=== PATIENT | male | born 1965 | race Caucasian/White ===

== ENCOUNTER → 2020-02-23 14:16 | Outpatient (BNVA) | payer BC, SELFPAY | PROVIDERS: Family Provider Family Medicine; PCP Family Medicine; Visit Provider Family Medicine | DX: E78.00 Pure hypercholesterolemia, unspecified (principal) | CPT/HCPCS: 80053; 80061; 85025 ==

== ENCOUNTER → 2020-03-14 08:48 | Outpatient (BNVA) | payer BC, SELFPAY | PROVIDERS: Family Provider Family Medicine; PCP Family Medicine; Referring Provider Family Medicine; Visit Provider Family Medicine | DX: R89.9 Unspecified abnormal finding in specimens from other organs, systems and tissues (principal); E78.00 Pure hypercholesterolemia, unspecified; I10 Essential (primary) hypertension | CPT/HCPCS: 36416; 82962 ==

== ENCOUNTER → 2021-12-10 12:27 | Outpatient (BNVA) | payer MEDICARE, MEDICAID, SELFPAY | PROVIDERS: Family Provider Family Medicine; PCP Family Medicine; Visit Provider Family Medicine | DX: R79.89 Other specified abnormal findings of blood chemistry (principal) | CPT/HCPCS: 84403 ==

== ENCOUNTER → 2022-03-18 13:52 | Outpatient (BNVA) | payer MEDICARE, MEDICAID, SELFPAY | PROVIDERS: Family Provider Family Medicine; PCP Family Medicine; Visit Provider Family Medicine | DX: E78.00 Pure hypercholesterolemia, unspecified (principal); R79.89 Other specified abnormal findings of blood chemistry | CPT/HCPCS: 80053; 80061; 84403; 85025 ==

== ENCOUNTER → 2022-09-17 12:37 | Outpatient (BNVA) | payer MEDICARE, MEDICAID, SELFPAY | PROVIDERS: Family Provider Family Medicine; PCP Family Medicine; Visit Provider Clinical Nurse Specialist Adult Health | DX: F41.1 Generalized anxiety disorder (principal); J31.0 Chronic rhinitis; R68.89 Other general symptoms and signs; F33.1 Major depressive disorder, recurrent, moderate; J01.01 Acute recurrent maxillary sinusitis | CPT/HCPCS: 87400 ==

== ENCOUNTER → 2022-09-22 12:22 | Outpatient (BNVA) | payer MEDICARE, MEDICAID, SELFPAY | PROVIDERS: Family Provider Family Medicine; PCP Family Medicine; Visit Provider Family Medicine | DX: F32.9 Major depressive disorder, single episode, unspecified (principal); R63.4 Abnormal weight loss; F33.1 Major depressive disorder, recurrent, moderate; J01.01 Acute recurrent maxillary sinusitis; R79.89 Other specified abnormal findings of blood chemistry; M54.41 Lumbago with sciatica, right side; M54.42 Lumbago with sciatica, left side; G89.29 Other chronic pain | CPT/HCPCS: 80053; 84403; 84439; 84443; 85025 ==

== ENCOUNTER 2022-12-10 18:39 | Emergency (ER) | payer MEDICARE, MEDICAID, SELFPAY ==
[2022-12-10] VITALS (8 sets, daily range): BP systolic 84–111; BP diastolic 61–83; PULSE 88–99; RESP 12–18; TEMP 35.7; O2SAT 93–97; BMI 25.7
--- NOTE | 2022-12-10 18:48 | XRR_ITS ---
PROCEDURE INFORMATION: Exam: XR Chest Exam date and time: 12/10/2022 6:57 PM Age: 57 years old Clinical indication: Pain; Chest pressure; Additional info: AMS, dizzy, weakness, back pain, nausea TECHNIQUE: Imaging protocol: Radiologic exam of the chest. Views: 1 view. COMPARISON: No relevant prior studies available. FINDINGS: Lungs: Mild interstitial prominence in the lung bases is most likely chronic change. Probable emphysema. No consolidation. Pleural spaces: Unremarkable. No pleural effusion. No pneumothorax. Heart/Mediastinum: Unremarkable. No cardiomegaly. Bones/joints: Unremarkable. XR/XR chest 1V portable [id number] IMPRESSION: No acute findings.
--- NOTE | 2022-12-10 19:13 | ECG_ITS ---
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 Measurements Intervals [place] Rate: 88 P: 69 LA: 172 QRS: 49 QRSD: 105 T: 77 QT: 403 QTc: 488 Interpretive Statements SINUS RHYTHM POSSIBLE LATERAL MYOCARDIAL INFARCTION , OF INDETERMINATE AGE [30 ms Q WAVE IN I/aVL/V5/V6] POSSIBLE INFERIOR MYOCARDIAL INFARCTION , PROBABLY OLD [30 ms Q WAVE IN II/aVF] No previous ECG available for comparison Electronically Signed On 12-10-2022 22:50:42 STUDIO POTTER by David Vargas M.D. [id number]
--- NOTE | 2022-12-10 19:17 | W.ED.WEAKNES ---
HPI - Weakness General: Chief complaint: Weakness Stated complaint: WEAKNESS Time Seen by Provider: 12/10/22 18:48 Source: patient and EMS Mode of arrival: EMS Limitations: no limitations History of Present Illness: 57-year-old male states that for quite some time he has been having he states that he has spells where he gets diaphoretic lightheaded and feels like he is in a pass out he states has been happening often and he states his primary care doctor to actually write him nitro he is never had any chest pain with these events he states he had another event tonight he took a nitro and his symptoms of gotten worse his blood pressure with EMS was in the 80s originally he states he felt nauseous like he is got a pass out denies any chest pain he did receive fluids in route his blood pressure is now in the 100 he states he feels improved and his symptoms have resolved. No slurred speech or focal weakness Associated symptoms: Denies chest pain, chills, dysuria, easy bruising, fever(s), nausea or vomiting Review of Systems Const: Denies: fever(s), chills, body aches or change in appetite Eyes: Denies: blurry vision or eye discomfort ENMT: Denies: throat pain or dental pain Card: Denies: chest pain Resp: Denies: dyspnea GI: Denies: abdominal pain, nausea, vomiting or diarrhea : Denies: dysuria Musc: Denies: neck pain or back pain Skin/Breast: Denies: rash Neuro: Reports: dizziness Psych: Denies: depression Archie/Lymph: Denies: easy bruising All/Imm: Denies: urticaria PFSH ED PFSH: Medical History Chronic bilateral low back pain with sciatica Chronic rhinitis COPD (chronic obstructive pulmonary disease) Generalized anxiety disorder GERD (gastroesophageal reflux disease) H/O strain of back Hypercholesteremia Hypertension Low testosterone Vitamin B1 deficiency neuropathy Surgical History H/O colonoscopy History of discectomy L 5S1 Social History Smoking and tobacco status: current every day smoker Alcohol intake: never Physical Exam Const: COMMON NORMALS: no acute distress, patient oriented x3 and healthy appearing HENMT: COMMON NORMALS: normocephalic and atraumatic HEAD & SCALP: normocephalic and atraumatic Eye: COMMON NORMALS: Equal, round and reactive pupils present and EOMs intact bilaterally PUPIL: Yes Equal, round and reactive pupils present Neck/C-Spine: COMMON NORMALS: full ROM and supple Chest: COMMONS NORMALS: normal inspection of the chest and normal palpation of entire chest wall Resp: COMMON NORMALS: normal respiratory effort, No retractions, No use of accessory muscles and clear to auscultation bilaterally AUSCULTATION: clear to auscultation bilaterally Cardio: COMMON NORMALS: regular rate, regular rhythm and No murmurs present (Cardio) RATE: regular rate RHYTHM: regular rhythm GI: COMMON NORMALS: Normal to inspection, nondistended, normoactive bowel sounds present, Soft to palpation, non-tender and no masses PALPATION: Yes Soft to palpation Extremity: COMMON NORMALS: normal to inspection and full ROM Neuro: COMMON NORMALS: patient oriented x3, moves all extremities and no focal motor deficits Psych: COMMON NORMALS: mental status grossly normal, Normal thought process present and cooperative THOUGHT PROCESS: Normal thought process present Skin: COMMON NORMALS: no rashes or lesions noted and no wounds GENERAL SKIN EXAM: no rashes or lesions noted Course Vital Signs: Vital signs: Vital Signs Temperature 96.2 F L 12/10/22 19:12 Pulse Rate 92 12/10/22 22:30 Respiratory Rate 18 12/10/22 22:30 Blood Pressure 111/83 12/10/22 22:30 Pulse Oximetry 97 12/10/22 22:30 Oxygen Delivery Me thod 12/10/22 19:12 MDM - Weakness Medical Decision Making Patient presents here with symptoms of a near syncopal event having these episodes that he also took a nitro that likely made his blood pressure worse he feels much improved here after IV fluids he states he does not drink much fluids he does have some dehydration and leukocytosis that did improve with IV fluids I did offer him admission for the leukocytosis he has no signs of infection he states he feels much improved and he wants to go home I informed he needs to follow-up his PCP in 5 to 7 days to have his white count rechecked and return if worsening he understands agrees to plan I informed him do not take nitro anymore. Lab Data 12/10/22 22:17 12/10/22 19:25 Radiology Impressions Chest X-Ray 12/10/22 18:48 IMPRESSION: No acute findings. Chest/Abdomen/Pelvis CT 12/10/22 19:54 IMPRESSION: 1. No evidence for pulmonary embolus. 2. Emphysema. No acute pulmonary finding. IMPRESSION: 1. Small gas bubbles in the left liver lobe most likely represents pneumobilia. This suggests prior sphincterotomy. Clinical correlation recommended. 2. Multiple bilateral adrenal nodules are most likely benign adenomas. Nonemergent follow-up adrenal CT is recommended. Laboratory Results WBC 21.4 10^3/uL (4.0-10.0) H 12/10/22 22:17 RBC 4.81 10^6/uL (4.1-5.3) 12/10/22 22:17 Hgb 15.1 g/dL (11.7-16.6) 12/10/22 22:17 Hct 45.1 % (42.0-52.0) 12/10/22 22:17 MCV 93.8 fl (80-94) 12/10/22 22:17 MCH 31.4 pg (28.0-34.0) 12/10/22 22: MCHC 33.5 g/dL (30.0-36.0) 12/10/22 22:17 RDW 12.8 % (12.1-15.1) 12/10/22 22:17 Plt Count 269 10^3/cmm (130-400) 12/10/22 22:17 MPV 9.9 fL (7.4-10.4) 12/10/22 22:17 Neut % (Auto) 88.9 % 12/10/22 22:17 Lymph % (Auto) 5.1 % 12/10/22 22:17 [place] % (Auto) 4.3 % 12/10/22 22:17 Eos % (Auto) 0.5 % 12/10/22 22: Baso % (Auto) 0.5 % 12/10/22 22:17 Neut # (Auto) 19.01 10^3/uL (1.8-7.7) H 12/10/22 22:17 Lymph # (Auto) 1.1 10^3/uL (0.8-4.8) 12/10/22 22:17 [place] # (Auto) 0.9 10^3/uL (0.2-0.9) 12/10/22 22:17 Eos # (Auto) 0.1 10^3/uL (0.0-0.8) 12/10/22 22:17 Baso # (Auto) 0.1 10^3/uL (0.0-0.1) 12/10/22 22:17 Nucleated RBC % (auto) 0 % 12/10/22 22: Nucleated RBCs # 0.0 /100WBC 12/10/22 22:17 PT 12.30 SECONDS (12.1-14.9) 12/10/22 19:25 INR 0.89 (0.8-1.2) 12/10/22 19:25 Sodium 142 mmol/L (136-145) 12/10/22 19:25 Potassium 4.0 mmol/L (3.5-5.1) 12/10/22 19:25 Chloride 100 mmol/L (98-107) 12/10/22 19:25 Carbon Dioxide 24 mmol/L (22-29) 12/10/22 19:25 Anion Gap 22.0 (5-19) H 12/10/22 19:25 BUN 24 mg/dL (6-20) H 12/10/22 19:25 Creatinine 1.5 mg/dL (0.7-1.2) H 12/10/22 19:25 GFR Calculation 48.1 mL/min (90-130) L 12/10/22 19:25 Glucose 98 mg/dL (65-115) 12/10/22 19:25 Calculated Osmolality 298 mOsm/kg (285-295) H 12/10/22 19:25 Lactate 1.9 mmol/L (0.5-2.2) 12/10/22 19:25 Calcium 9.9 mg/dL (8.5-10.5) 12/10/22 19:25 Total Bilirubin 0.2 mg/dL (0.15-1.2) 12/10/22 19:25 AST 14 U/L (0-40) 12/10/22 19:25 ALT 15 U/L (0-41) 12/10/22 19:25 Alkaline Phosphatase 146 U/L (40-130) H 12/10/22 19:25 Troponin T Baseline 11 ng/L (0-15) 12/10/22 19:25 Troponin T 120 Minute 9.77 ng/L (0-15) 12/10/22 21:48 Delta Troponin T -1.23 ABS# (0-10) L 12/10/22 21:48 Total Protein 7.9 g/dL (6.6-8.7) 12/10/22 19:25 Albumin 4.7 g/dL (3.5-5.2) 12/10/22 19:25 Globulin 3.2 g/dL (1.3-4.6) 12/10/22 19:25 Urine Color Yellow (Yellow) 12/10/22 22:31 Urine Appearance Clear (CLEAR) 12/10/22 22: Urine pH 5 (5-7) 12/10/22 22: Ur Specific Boyce 1.010 (1.005-1.030) 12/10/22 22:31 Urine Protein Neg (Negative) 12/10/22 22: Urine Glucose (UA) Norm (Normal) 12/10/22 22:31 Urine Ketones Negative (Negative) 12/10/22 22:31 Urine Blood Neg (Negative) 12/10/22 22:31 Urine Nitrate Negative (Negative) 12/10/22 22: Urine Bilirubin Neg (Negative) 12/10/22 22: Urine Urobilinogen Norm mg/dL (Negative) 12/10/22 22:31 Ur Leukocyte Esterase Negative (Negative) 12/10/22 22: Ethyl Alcohol < 10 mg/dL (0-10) 12/10/22 19:25 EKG Data EKG 1: I personally reviewed and interpreted this EKG as follows: EKG interpretation date: 12/10/22 EKG interpretation time: 19:13 Interpretation: nsr hr [address] or t wave abnormalities qrs 105 qtc 448 Discharge Plan Discharge Patient Disposition: Home Clinical Impression: Leukocytosis, Near syncope Condition: Stable Prescriptions: No Action mupirocin 2 % ointment 1 applic TOPICAL BID Qty: 22 0RF aspirin [Adult Low Dose Aspirin] 81 mg tablet,delayed release (DR/EC) 81 mg PO ONCE albuterol sulfate [Ventolin HFA] 90 mcg/actuation HFA aerosol inhaler 2 puff INHALATION Q6H PRN azelastine 137 mcg (0.1 %) aerosol,spray 1 spray INTRANASAL BID nitroglycerin 0.4 mg tablet, sublingual 0.4 mg sublingual Q5M PRN (Reason: chest pain) Qty: 25 1RF Rx Instructions: do not exceed 3 doses per episode albuterol sulfate [ProAir HFA] 90 mcg/actuation HFA aerosol inhaler 2 puff inhalation QID PRN (Reason: shortness of breath or wheezing) Qty: 8.5 6RF budesonide-formoterol [Symbicort] 160-4.5 mcg/actuation HFA aerosol inhaler 2 puff inhalation Q12H Qty: 10.2 6RF hydrocodone-acetaminophen 7.5-325 mg tablet 1 tab PO DAILY PRN (Reason: pain) 30 Days Qty: 30 0RF Zyrtec 10 mg capsule 10 mg PO ONCE Qty: 60 1RF testosterone cypionate [Depo-Testosterone] 200 mg/mL oil 100 mg IM Q14D Qty: 1 5RF Rx Instructions: after first 2 doses: increase to 1ml every 4 weeks meloxicam 15 mg tablet See Rx Instructions .ROUTE .COMPLEX Qty: 90 1RF Dose Instruction: TAKE 1 TABLET BY MOUTH EVERY DAY Rx Instructions: TAKE 1 TABLET BY MOUTH EVERY DAY tamsulosin 0.4 mg capsule See Rx Instructions .ROUTE .COMPLEX Qty: 90 1RF Dose Instruction: TAKE ONE CAPSULE BY MOUTH EVERY DAY Rx Instructions: TAKE ONE CAPSULE BY MOUTH EVERY DAY montelukast 10 mg tablet See Rx Instructions .ROUTE .COMPLEX Qty: 90 1RF Dose Instruction: TAKE 1 TABLET BY MOUTH EVERY DAY Rx Instructions: TAKE 1 TABLET BY MOUTH EVERY DAY Folbee 2.5-25-1 mg tablet 1 tab PO ONCE 90 Days Qty: 90 3RF omeprazole 20 mg capsule,delayed release(DR/EC) 40 mg .ROUTE DAILY 60 Days Qty: 120 3RF Rx Instructions: 40 mg daily; rosuvastatin 10 mg tablet 10 mg PO DAILY Qty: 90 1RF fluoxetine 20 mg capsule 20 mg PO DAILY Qty: 30 3RF pseudoephedrine HCl 60 mg tablet 60 mg PO Q12H PRN (Reason: nasal congestion) 30 Days Qty: 60 3RF lisinopril-hydrochlorothiazide 20-12.5 mg tablet 1 tab PO BID Qty: 180 2RF buspirone 30 mg tablet See Rx Instructions .ROUTE .COMPLEX Qty: 180 2RF Dose Instruction: TAKE 1 TABLET BY MOUTH TWICE DAILY FOR ANXIETY Rx Instructions: TAKE 1 TABLET BY MOUTH TWICE DAILY FOR ANXIETY Discharge Orders: Discharge ED (Routine); Ordered 12/10/22 Ordered By: Venancio Weeks Referrals: Luigi Olivares MD [Primary Care Provider] - Discharge Diet: Advance as tolerated Discharge Activity: Resume usual activity Patient Instructions: Near Syncope (ED) Coding Level of Care Code ED Airflight Attendants Supervisor for Maribell Helms
[2022-12-10 19:51] LABS: Basophils # 0.2 10^3/uL (0.0-0.1); Basophils % 0.5 %; Eosinophils # 0.2 10^3/uL (0.0-0.8); Eosinophils % 0.5 %; Hematocrit 50.1 % (42.0-52.0); Hemoglobin 16.9 g/dL (11.7-16.6); Lymphocytes # 2.1 10^3/uL (0.8-4.8); Lymphocytes % 7.5 %; Mean Corpuscular HGB Conc 33.7 g/dL (30.0-36.0); Mean Corpuscular Hemoglobin 31.4 pg (28.0-34.0); Mean Corpuscular Volume 93.1 fl (80-94); Mean Platelet Volume 9.9 fL (7.4-10.4); Monocytes # 1.4 10^3/uL (0.2-0.9); Monocytes % 5.1 %; Neutrophils # 23.72 10^3/uL (1.8-7.7); Neutrophils % 85.5 %; Nucleated Red Blood Cells % 0 %; Platelet Count 343 10^3/cmm (130-400); Red Blood Count 5.38 10^6/uL (4.1-5.3); Red Cell Distribution Width 12.8 % (12.1-15.1); White Blood Count 27.8 10^3/uL (4.0-10.0)
--- NOTE | 2022-12-10 19:54 | CTR_ITS ---
PROCEDURE INFORMATION: Exam: CTA Chest With Contrast Exam date and time: 12/10/2022 8:56 PM Age: 57 years old Clinical indication: Other: Chest pain, with nausea; Chest wall pain; Additional info: Pain in chest, dizziness and syncope type episode TECHNIQUE: Imaging protocol: Computed tomographic angiography of the chest with contrast. 3D rendering (Not supervised by radiologist): MIP and/or 3D reconstructed images were created by the technologist. Radiation optimization: All CT scans at this facility use at least one of these dose optimization techniques: automated exposure control; mA and/or kV adjustment per patient size (includes targeted exams where dose is matched to clinical indication); or iterative reconstruction. Contrast material: OMNIPAQUE 350; Contrast volume: 95 ml; Contrast route: INTRAVENOUS (IV); REPORTING DATA: Count of CT and Cardiac NM exams in prior 12 months: This patient has received 0 known CTs and 0 known cardiac nuclear medicine studies in the 12 months prior to the current study. COMPARISON: CR (CHEST, ) 12/10/2022 6:57 PM RADIATION DOSE METRICS: Total DLP (mGy-cm): 980.66 FINDINGS: Pulmonary arteries: Normal. No pulmonary emboli. Aorta: The ascending thoracic aorta is upper normal measuring 3.9 cm. No dissection. Lungs: Emphysema. Mild atelectasis in the lower lobes and lingula. The lungs are otherwise clear. No consolidation. Pleural spaces: Unremarkable. No pneumothorax. No pleural effusion. Heart: The heart size is normal. Coronary arteries: Coronary artery calcifications. Lymph nodes: Unremarkable. No enlarged lymph nodes. Bones/joints: Mild degenerative changes of the thoracic spine. No acute fracture. Soft tissues: Unremarkable. COMMENTS: In the absence of a history or active diagnosis of lung cancer, it is recommended that this patient with emphysema be evaluated for enrollment in a low dose CT lung cancer screening program. PROCEDURE INFORMATION: Exam: CT Abdomen And Pelvis With Contrast Exam date and time: 12/10/2022 8:56 PM Age: 57 years old Clinical indication: Other: Chest pain, with nausea; Chest wall pain; Additional info: Pain in chest, dizziness and syncope type episode TECHNIQUE: Imaging protocol: Computed tomography of the abdomen and pelvis with contrast. Radiation optimization: All CT scans at this facility use at least one of these dose optimization techniques: automated exposure control; mA and/or kV adjustment per patient size (includes targeted exams where dose is matched to clinical indication); or iterative reconstruction. Contrast material: OMNIPAQUE 350; Contrast volume: 95 ml; Contrast route: INTRAVENOUS (IV); REPORTING DATA: Count of CT and Cardiac NM exams in prior 12 months: This patient has received 0 known CTs and 0 known cardiac nuclear medicine studies in the 12 months prior to the current study. COMPARISON: CR (CHEST, ) 12/10/2022 6:57 PM RADIATION DOSE METRICS: Total DLP (mGy-cm): 980.66 FINDINGS: Liver: Normal. No nodule. Gallbladder and bile ducts: The gallbladder is partially contracted. The bile ducts are normal. Multiple small gas bubbles in the left liver lobe appear to be adjacent to the portal veins and are most likely within the bile ducts. Pancreas: Normal. No ductal dilation. Spleen: Normal. No splenomegaly. Adrenal glands: Multiple right adrenal nodules measuring up to 2.1 cm, 41 Hounsfield units. Multiple left adrenal nodules, the largest 2.5 cm, 31 Hounsfield units. Kidneys and ureters: Normal. No hydronephrosis. Stomach and bowel: Fluid distended stomach. No wall thickening. Diverticulosis of the colon. No diverticulitis. The small bowel is unremarkable. No wall thickening, obstruction, or pneumatosis visualized. Appendix: The appendix is visualized and is normal. Intraperitoneal space: Unremarkable. No free air. No significant fluid collection. Vasculature: Arterial calcifications. No aneurysm. Lymph nodes: Unremarkable. No enlarged lymph nodes. Urinary bladder: Unremarkable as visualized. Reproductive: Mildly enlarged prostate. Bones/joints: Unremarkable. No acute fracture. Soft tissues: Unremarkable. CT/CT angio chest w abd pel w con IMPRESSION: 1. No evidence for pulmonary embolus. 2. Emphysema. No acute pulmonary finding. IMPRESSION: 1. Small gas bubbles in the left liver lobe most likely represents pneumobilia. This suggests prior sphincterotomy. Clinical correlation recommended. 2. Multiple bilateral adrenal nodules are most likely benign adenomas. Nonemergent follow-up adrenal CT is recommended.
[2022-12-10 19:59] LABS: INR 0.89 (0.8-1.2)
[2022-12-10 20:08] LABS: Lactate (Lactic Acid level) 1.9 mmol/L (0.5-2.2)
--- NOTE | 2022-12-10 20:49 | ECG_ITS ---
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 Measurements Intervals [place] Rate: 87 P: 80 [place]: 177 QRS: 52 QRSD: 101 T: 75 QT: 401 QTc: 484 Interpretive Statements SINUS RHYTHM POSSIBLE RIGHT VENTRICULAR CONDUCTION DELAY [RSR (QR) IN V1/V2] Compared to ECG 12/10/2022 19:13:19 Myocardial infarct finding no longer present Electronically Signed On 12-10-2022 22:51:17 RIVER TRANSPORTATION WORKER by David Vargas M.D. [email or web address] care [id number]
[2022-12-10] MEDS: iohexol 350 mg/mL 500 mL Btl (per mL) IV (21:00)
[2022-12-10 21:40] LABS: Troponin(5th) Baseline 11 ng/L (0-15)
[2022-12-10 21:46] LABS: Alanine Aminotransferase 15 U/L (0-41); Albumin Level 4.7 g/dL (3.5-5.2); Alkaline Phosphatase 146 U/L (40-130); Aspartate Amino Transferase 14 U/L (0-40); Blood Urea Nitrogen 24 mg/dL (6-20); Calcium 9.9 mg/dL (8.5-10.5); Carbon Dioxide 24 mmol/L (22-29); Chloride 100 mmol/L (98-107); Globulin 3.2 g/dL (1.3-4.6); Glomerular Filtration Rate 48.1 mL/min (90-130); Glucose 98 mg/dL (65-115); Osmolality Calculated 298 mOsm/kg (285-295); Sodium 142 mmol/L (136-145); Total Bilirubin 0.2 mg/dL (0.15-1.2); Total Protein 7.9 g/dL (6.6-8.7)
[2022-12-10 21:49] LABS: Alcohol Level < 10 mg/dL (0-10)
[2022-12-10 22:21] LABS: Basophils # 0.1 10^3/uL (0.0-0.1); Basophils % 0.5 %; Eosinophils # 0.1 10^3/uL (0.0-0.8); Eosinophils % 0.5 %; Hematocrit 45.1 % (42.0-52.0); Hemoglobin 15.1 g/dL (11.7-16.6); Lymphocytes # 1.1 10^3/uL (0.8-4.8); Lymphocytes % 5.1 %; Mean Corpuscular HGB Conc 33.5 g/dL (30.0-36.0); Mean Corpuscular Hemoglobin 31.4 pg (28.0-34.0); Mean Corpuscular Volume 93.8 fl (80-94); Mean Platelet Volume 9.9 fL (7.4-10.4); Monocytes # 0.9 10^3/uL (0.2-0.9); Monocytes % 4.3 %; Neutrophils # 19.01 10^3/uL (1.8-7.7); Neutrophils % 88.9 %; Nucleated Red Blood Cells % 0 %; Platelet Count 269 10^3/cmm (130-400); Red Blood Count 4.81 10^6/uL (4.1-5.3); Red Cell Distribution Width 12.8 % (12.1-15.1); White Blood Count 21.4 10^3/uL (4.0-10.0)
[2022-12-10 22:23] LABS: Troponin 5 2HR 9.77 ng/L (0-15)
[2022-12-10 22:37] LABS: Add Urine Microscopic? NO; Charge for UA Resulting for Rev
[2022-12-10 22:38] LABS: Urine Appearance Clear (CLEAR); Urine Color Yellow (Yellow); pH Urine 5 (5-7)
[2022-12-10 22:39] LABS: Bilirubin Urine Neg (Negative); Blood Urine Neg (Negative); Glucose Urine UA Norm (Normal); Ketones Urine Negative (Negative); Leukocyte Esterase Urine Negative (Negative); Nitrate Urine Negative (Negative); Protein Urine Neg (Negative); Urobilinogen Urine Norm (Negative)
[2022-12-10 22:39] LABS: Troponin 5 2HR Delta -1.23 ABS# (0-10)
== END 2022-12-10 22:54 | disposition home or self-care (01) ==
PROVIDERS: Emergency Provider Emergency Medicine; PCP Family Medicine
DX: R55 Syncope and collapse (principal); D72.829 Elevated white blood cell count, unspecified; Z79.82 Long term (current) use of aspirin; F17.210 Nicotine dependence, cigarettes, uncomplicated; J44.9 Chronic obstructive pulmonary disease, unspecified; I10 Essential (primary) hypertension
CPT/HCPCS: 36415; 71045; 71275; 74177; 80053; 80307; 81003; 83605; 84484; 85025; 85610; 93005; 99285; Q9967

== ENCOUNTER → 2022-12-17 13:07 | Outpatient (BNVA) | payer MEDICARE, MEDICAID, SELFPAY | PROVIDERS: PCP Family Medicine; Visit Provider Family Medicine | DX: D72.829 Elevated white blood cell count, unspecified (principal) | CPT/HCPCS: 80053; 85025 ==

== ENCOUNTER 2022-12-19 18:05 | Outpatient (CLI) | payer MEDICARE, MEDICAID, SELFPAY ==
--- NOTE | 2022-12-19 18:15 | XRR_ITS ---
PROCEDURE INFORMATION: Exam: XR Right Hand Exam date and time: 12/19/2022 6:15 PM Age: 57 years old Clinical indication: Pain; Right; Patient HX: Phlebitis after blood drawn from hand; Additional info: Right hand pain TECHNIQUE: Imaging protocol: Radiologic exam of the right hand. Views: 3 or more views. COMPARISON: No relevant prior studies available. FINDINGS: Bones/joints: Moderate to severe arthritic changes seen involving the 1st metacarpal carpal joint as well as the scaphoid trapezium and scaphoid trapezoid joints. Mild arthritic changes seen involving the interphalangeal joints. There is no fracture, dislocation or subluxation. Soft tissues: Normal. XR/XR hand RT min 3V* [id number] IMPRESSION: Arthritis.
== END 2022-12-19 18:06 | disposition home or self-care (01) ==
PROVIDERS: PCP Family Medicine; Visit Provider Emergency Medicine
DX: M19.041 Primary osteoarthritis, right hand (principal)
CPT/HCPCS: 73130

== ENCOUNTER → 2023-04-13 07:30 | Outpatient (BNVA) | payer MEDICARE, MEDICAID, SELFPAY | PROVIDERS: PCP Family Medicine; Visit Provider Otolaryngology | DX: J31.0 Chronic rhinitis (principal); J32.9 Chronic sinusitis, unspecified; J34.2 Deviated nasal septum; J34.3 Hypertrophy of nasal turbinates; T48.5X5A Adverse effect of other anti-common-cold drugs, initial encounter; X58.XXXA Exposure to other specified factors, initial encounter | CPT/HCPCS: 99203 ==

== ENCOUNTER 2023-05-19 10:45 | Outpatient (CLI) | payer MEDICARE, MEDICAID, SELFPAY ==
--- NOTE | 2023-05-19 11:00 | CT_ITS ---
WS: [id number] CT SINUSES TECHNIQUE: Noncontrast CT of the paranasal sinuses with coronal and sagittal reformatted images. CLINICAL INFORMATION: sinus concerns COMPARISON: April 08, 2017 DLP: 373.[address] scans at [facility] use at least one of these dose optimization techniques: automated e xposure control; mA and/or kV adjustment per patient size (includes targeted exams where dose is matc hed to clinical indication); or iterative reconstruction. FINDINGS: Mild RIGHT to LEFT nasal deviation measuring 4 mm. Bilateral vincent bullosa. Narrowing of the ostiome atal units bilaterally with mucosal thickening. Hypoplastic frontal sinuses. Secretions with air-flui d levels in the maxillary sinuses. Frothy secretions in the maxillary sinuses. Polypoid mucosal thick ening RIGHT maxillary sinus measuring 10 mm. Sphenoid sinuses are well aerated. Cavernous carotid francheska cification. Mastoid air cells are well aerated. Normal posterior nasopharynx. Normal parapharyngeal fat. 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 Chronic lacunar infarcts LEFT thalamus. Unchanged low-attenuation lesion encephalomal acia RIGHT posterior limb internal capsule/lateral thalamus. IMPRESSION: 1. Mild RIGHT to LEFT deviation measuring 4 mm. 2. Sinusitis with frothy secretions in the maxillary sinuses progressed compared to previous. 3. Mucosal thickening with narrowing of the ostiomeatal units bilaterally. Small RIGHT Corona cell c ontributes to narrowing. 4. 10 mm polypoid mucosal thickening RIGHT maxillary sinus. 5. Sphenoid sinus and sphenoid ostia are patent. 6. Mastoid air cells well aerated. 7. Hypoplastic frontal sinuses.
== END 2023-05-19 10:46 | disposition home or self-care (01) ==
LOC: RAD 10:48
PROVIDERS: PCP Family Medicine; Visit Provider Otolaryngology
DX: J31.0 Chronic rhinitis (principal); J34.2 Deviated nasal septum; J32.9 Chronic sinusitis, unspecified; J33.1 Polypoid sinus degeneration
CPT/HCPCS: 70486

== ENCOUNTER → 2023-05-26 15:33 | Outpatient (BNVA) | payer MEDICARE, MEDICAID, SELFPAY | PROVIDERS: PCP Family Medicine; Visit Provider Otolaryngology | DX: J32.9 Chronic sinusitis, unspecified (principal); J34.2 Deviated nasal septum; J34.3 Hypertrophy of nasal turbinates; J34.89 Other specified disorders of nose and nasal sinuses; J31.0 Chronic rhinitis; T48.5X5A Adverse effect of other anti-common-cold drugs, initial encounter; X58.XXXA Exposure to other specified factors, initial encounter | CPT/HCPCS: 99213 ==

== ENCOUNTER → 2023-08-03 11:25 | Outpatient (BNVA) | payer MEDICARE, MEDICAID, SELFPAY | PROVIDERS: PCP Family Medicine; Visit Provider Otolaryngology | DX: J32.9 Chronic sinusitis, unspecified (principal); J31.0 Chronic rhinitis; T48.5X5A Adverse effect of other anti-common-cold drugs, initial encounter; J34.2 Deviated nasal septum; J34.3 Hypertrophy of nasal turbinates; J34.89 Other specified disorders of nose and nasal sinuses; F17.210 Nicotine dependence, cigarettes, uncomplicated; X58.XXXA Exposure to other specified factors, initial encounter | CPT/HCPCS: 99213; 99214 ==

== ENCOUNTER → 2024-10-17 12:24 | Outpatient (BNVA) | payer MEDICARE, MEDICAID, SELFPAY | PROVIDERS: PCP Family Medicine; Visit Provider Family Medicine | DX: E53.8 Deficiency of other specified B group vitamins (principal); E55.9 Vitamin D deficiency, unspecified; E78.00 Pure hypercholesterolemia, unspecified; I10 Essential (primary) hypertension; K21.9 Gastro-esophageal reflux disease without esophagitis; R79.89 Other specified abnormal findings of blood chemistry; E51.11 Dry beriberi | CPT/HCPCS: 80053; 80061; 82306; 82607; 84403; 85025 ==

== ENCOUNTER 2025-02-01 10:48 | Emergency (ER) | payer MEDICARE, SELFPAY ==
[2025-02-01] VITALS (8 sets, daily range): BP systolic 146–181; BP diastolic 93–106; PULSE 64–98; RESP 16–18; TEMP 36.3; O2SAT 96–98; BMI 27.2
--- NOTE | 2025-02-01 10:58 | ECG_ITS ---
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 Measurements Intervals [place] Rate: 72 P: 68 VT: 164 QRS: 29 QRSD: 96 T: 53 QT: 425 QTc: 468 Interpretive Statements SINUS RHYTHM INTERPRETATION BASED ON A DEFAULT AGE OF 40 YEARS Compared to ECG 12/10/2022 21:31:51 No significant changes Electronically Signed On 02-01-2025 21:25:16 CDT by Ana Cedeno M.D. [email or web address] [id number]
--- NOTE | 2025-02-01 11:29 | XR_ITS ---
WS: [id number] Portable AP upright chest, 02/01/2025 Clinical Data: dyspnea/cough Comparison: Portable chest, 12/10/2022 Findings: No nodules, masses or effusions are seen. The heart is normal. The pulmonary vascularity is not increased. No pneumonia or pneumothorax is seen. Monitor leads are on the chest wall. XR/XR chest 1V portable [id number] Impression: Negative chest.
--- NOTE | 2025-02-01 11:29 | W.ED.GENADLT ---
HPI - General Adult General: Chief complaint: General Medical Stated complaint: dizzy, n/v, high bp, chest pressure Time Seen by Provider: 02/01/25 10:55 History of Present Illness: 59-year-old male presents to the emergency room with complaint cough congestion sinus drainage. Patient states he will intermittently get episodes where he feels lightheaded and dizzy he relates his blood pressure usually elevated during this time left chest pressure as well is also accompanied by headache. He had all of the symptoms prior to arrival today the last anywhere from 15 to 30 minutes when he gets these episodes. No recent medication changes. He has no known history of coronary artery disease or arrhythmias. He is a smoker. Associated symptoms: Reports chest pain; Deny dyspnea or rash Related Data Home Medications ?Medication ?Instructions ?Recorded ?Confirmed aspirin 81 mg tablet,delayed 81 mg PO ONCE 10/21/19 02/01/25 release (Adult Low Dose Aspirin) buspirone 30 mg tablet 30 mg PO BID 02/01/25 02/01/25 folic acid-vit B6-vit B12 2.5 1 tab PO DAILY 02/01/25 02/01/25 mg-25 mg-1 mg tablet (Folbee) omeprazole 20 mg capsule,delayed 20 mg PO DAILY 02/01/25 02/01/25 release tamsulosin 0.4 mg capsule 0.4 mg PO DAILY 02/01/25 02/01/25 Previous Rx's ?Medication ?Instructions ?Recorded fluoxetine 20 mg capsule 20 mg PO DAILY #90 caps 10/17/24 lisinopril 20 1 tab PO DAILY #90 tabs 10/17/24 mg-hydrochlorothiazide 12.5 mg tablet meloxicam 15 mg tablet 15 mg PO DAILY #90 tabs 10/17/24 montelukast 10 mg tablet 10 mg PO DAILY #90 tabs 10/17/24 sildenafil 100 mg tablet (Viagra) 100 mg PO DAILY PRN sexual 10/17/24 activity #7 tabs clopidogrel 75 mg tablet 75 mg PO DAILY #30 tabs 02/01/25 metoprolol succinate 25 mg 25 mg PO DAILY #30 tabs 02/01/25 tablet,extended release 24 hr (Toprol XL) rosuvastatin 40 mg tablet 40 mg PO DAILY #30 tabs 02/01/25 Allergies Allergy/AdvReac Type Severity Reaction Status Date / Time acetaminophen (From Percocet) Allergy chest Verified 02/01/25 11:02 pains, dizziness oxycodone (From Percocet) Allergy chest Verified 02/01/25 11:02 pains, dizziness Penicillins Allergy hives Verified 02/01/25 11:02 Review of Systems Const: Denies: fever(s) or chills Card: Reports: chest pain Resp: Denies: dyspnea GI: Denies: abdominal pain : Denies: dysuria, urinary frequency or urinary urgency Musc: Denies: neck pain or back pain Skin/Breast: Denies: rash PFSH ED PFSH: Medical History (Updated 02/01/25 @ 14:13 by Mihai Meredith DO) H/O strain of back COPD (chronic obstructive pulmonary disease) Hypertension GERD (gastroesophageal reflux disease) Low testosterone Hypercholesteremia Chronic bilateral low back pain with sciatica Generalized anxiety disorder Chronic rhinitis Vitamin B1 deficiency neuropathy Surgical History H/O colonoscopy History of discectomy L 5S1 Social History Smoking and tobacco/nicotine status: current every day tobacco/nicotine user Alcohol intake: never Substance/Drug Use: never Physical Exam Const: GENERAL APPEARANCE: cooperative ORIENTATION/CONSCIOUSNESS: Yes awake, Yes oriented to person, Yes oriented to place and Yes oriented to time HENMT: COMMON NORMALS: normocephalic, atraumatic and hearing grossly normal bilaterally HEAD & SCALP: normocephalic and atraumatic Resp: COMMON NORMALS: normal respiratory effort, No retractions, No use of accessory muscles and clear to auscultation bilaterally AUSCULTATION: clear to auscultation bilaterally Cardio: COMMON NORMALS: regular rate, regular rhythm and No murmurs present (Cardio) RATE: regular rate RHYTHM: regular rhythm GI: COMMON NORMALS: Soft to palpation and No hepatosplenomegaly present AUSCULTATION: Yes normoactive bowel sounds PALPATION: Yes Soft to palpation, No Tenderness to palpation present (GI), No Guarding due to palpation present (GI) and Yes No hepatosplenomegaly present Extremity: COMMON NORMALS: normal to inspection, capillary refill normal, no clubbing, cyanosis or edema, no calf tenderness and no pedal edema Neuro: SENSORIUM/ORIENTATION: Yes oriented to person, Yes oriented to place and Yes oriented to time Skin: COMMON NORMALS: no rashes or lesions noted GENERAL SKIN EXAM: no rashes or lesions noted Course Vital Signs: Vital signs: Vital Signs Temperature 97.4 F L 02/01/25 10:54 Pulse Rate 70 02/01/25 17:38 Respiratory Rate 18 02/01/25 17:38 Blood Pressure 146/93 02/01/25 17:38 Pulse Oximetry 97 02/01/25 17:38 Oxygen Delivery Me thod Room Air 02/01/25 14:00 MDM - General Adult Medical Decision Making Patient still has some unsteadiness no nausea or vomiting. Some this may be due to his sinus infection. Will start him on dual platelet therapy and statin. He was already on aspirin and will increase his rosuvastatin. Also add metoprolol 25 p.o. daily. Set him up for an MRI of the brain and follow-up with neurology. Patient states he has had episodes like this in the past that usually resolve it has been sometime since he had them. On repeat exam there is no evidence of stroke. Lab Data 02/01/25 11:17 02/01/25 11:17 Radiology Impressions Chest X-Ray 02/01/25 11:29 Impression: Negative chest. Head CT 02/01/25 14:55 IMPRESSION: No acute intracranial findings. Laboratory Results WBC 8.70 10^3/uL (3.29-11.43) 02/01/25 11:17 RBC 5.10 10^6/uL (3.85-5.65) 02/01/25 11:17 Hgb 16.00 g/dL (11.27-16.99) 02/01/25 11:17 Hct 46.1 % (37-53) 02/01/25 11:17 MCV 90.4 fl (82-101) 02/01/25 11:17 MCH 31.4 pg (27-33) 02/01/25 11:17 MCHC 34.7 g/dL (30-55) 02/01/25 11:17 RDW 12.4 % (12.1-15.1) 02/01/25 11:17 Plt Count 252 10^3/cmm (157-399) 02/01/25 11:17 MPV 9.8 fL (7.4-10.4) 02/01/25 11:17 Neut % (Auto) 73.2 % 02/01/25 11:17 Lymph % (Auto) 17.8 % 02/01/25 11:17 [place] % (Auto) 5.6 % 02/01/25 11:17 Eos % (Auto) 2.0 % 02/01/25 11:17 Baso % (Auto) 0.9 % 02/01/25 11:17 Neut # (Auto) 6.37 10^3/uL (1.8-7.7) 02/01/25 11:17 Lymph # (Auto) 1.6 10^3/uL (0.8-4.8) 02/01/25 11:17 [place] # (Auto) 0.5 10^3/uL (0.2-0.9) 02/01/25 11:17 Eos # (Auto) 0.2 10^3/uL (0.0-0.8) 02/01/25 11:17 Baso # (Auto) 0.1 10^3/uL (0.0-0.1) 02/01/25 11:17 Nucleated RBC % (auto) 0 % 02/01/25 11:17 Nucleated RBCs # 0.0 /100WBC 02/01/25 11:17 Sodium 138 mmol/L (136-145) 02/01/25 11:17 Potassium 3.8 mmol/L (3.5-5.1) 02/01/25 11:17 Chloride 101 mmol/L (98-107) 02/01/25 11:17 Carbon Dioxide 22 mmol/L (22-29) 02/01/25 11:17 Anion Gap 18.8 (5-19) 02/01/25 11:17 BUN 20 mg/dL (8-23) 02/01/25 11:17 Creatinine 1.1 mg/dL (0.7-1.2) 02/01/25 11:17 GFR Calculation 68.3 mL/min (90-130) L 02/01/25 11:17 Glucose 111 mg/dL (65-115) 02/01/25 11:17 Calculated Osmolality 289 mOsm/kg (285-295) 02/01/25 11:17 Calcium 9.1 mg/dL (8.5-10.5) 02/01/25 11:17 Total Bilirubin 0.4 mg/dL (0.15-1.2) 02/01/25 11:17 AST 14 U/L (0-40) 02/01/25 11:17 ALT 13 U/L (0-41) 02/01/25 11:17 Alkaline Phosphatase 123 U/L (40-130) 02/01/25 11:17 Troponin T Baseline 10 ng/L (0-15) 02/01/25 11:17 Troponin T 120 Minute 11.60 ng/L (0-15) 02/01/25 13:20 Delta Troponin T 1.60 ABS# (0-10) 02/01/25 13:20 Total Protein 7.0 g/dL (6.6-8.7) 02/01/25 11:17 Albumin 4.2 g/dL (3.5-5.2) 02/01/25 11:17 Globulin 2.8 g/dL (1.3-4.6) 02/01/25 11:17 Urine Color Yellow (Yellow) 02/01/25 12:15 Urine Appearance Clear (CLEAR) 02/01/25 12:15 Urine pH 7.5 (5-7) 02/01/25 12:15 Ur Specific [place] 1.020 (1.005-1.030) 02/01/25 12:15 Urine Protein Trace (Negative) A 02/01/25 12:15 Urine Glucose (UA) Negative (Normal) 02/01/25 12:15 Urine Ketones Trace (Negative) 02/01/25 12:15 Urine Blood Negative (Negative) 02/01/25 12:15 Urine Nitrate Negative (Negative) 02/01/25 12:15 Urine Bilirubin Negative (Negative) 02/01/25 12:15 Urine Urobilinogen 1.0 mg/dL (Negative) 02/01/25 12:15 Ur Leukocyte Esterase Negative (Negative) 02/01/25 12:15 Urine RBC 0-2 /hpf (0-2) 02/01/25 12:15 Urine WBC 0-5 /hpf (0-5) 02/01/25 12:15 Ur Squamous Epith Cells 0-5 /hpf (0-5) 02/01/25 12:15 Amorphous Sediment Not Reportable 02/01/25 12:15 Urine Bacteria None seen /hpf (NONE) 02/01/25 12:15 Hyaline Casts 0-4 /lpf H 02/01/25 12:15 Influenza A (PCR) Negative (Negative) 02/01/25 11:25 Influenza Type B (PCR) Negative (Negative) 02/01/25 11:25 RSV (PCR) Negative (Negative) 02/01/25 11:25 SARS-CoV-2 (PCR) Negative (Negative) 02/01/25 11:25 All radiology interpretation(s) finalized by discharge Discharge Plan Discharge Patient Disposition: Home Clinical Impression: Hypertension, Atypical chest pain Condition: Stable Prescriptions: New metoprolol succinate [Toprol XL] 25 mg tablet extended release 24 hr 25 mg PO DAILY Qty: 30 0RF clopidogrel 75 mg tablet 75 mg PO DAILY Qty: 30 0RF rosuvastatin 40 mg tablet 40 mg PO DAILY Qty: 30 0RF Discontinued rosuvastatin 10 mg tablet 10 mg PO DAILY No Action aspirin [Adult Low Dose Aspirin] 81 mg tablet,delayed release (DR/EC) 81 mg PO ONCE fluoxetine 20 mg capsule 20 mg PO DAILY Qty: 90 3RF lisinopril-hydrochlorothiazide 20-12.5 mg tablet 1 tab PO DAILY Qty: 90 3RF meloxicam 15 mg tablet 15 mg PO DAILY Qty: 90 3RF montelukast 10 mg tablet 10 mg PO DAILY Qty: 90 3RF sildenafil [Viagra] 100 mg tablet 100 mg PO DAILY PRN (Reason: sexual activity) Qty: 7 0RF Rx Instructions: 1/2 tablet as a starting dose Folbee 2.5-25-1 mg tablet 1 tab PO DAILY Rx Instructions: Take 1 tablet by mouth once daily tamsulosin 0.4 mg capsule 0.4 mg PO DAILY Rx Instructions: take 1 capsule BY MOUTH EVERY DAY buspirone 30 mg tablet 30 mg PO BID Rx Instructions: TAKE 1 TABLET BY MOUTH TWICE DAILY FOR anxiety omeprazole 20 mg capsule,delayed release(DR/EC) 20 mg PO DAILY Rx Instructions: take 1 capsule BY MOUTH EVERY DAY Discharge Orders: Discharge ED (Routine); Ordered 02/01/25 Ordered By: Mihai Meredith Referrals: Luigi Olivares MD [Primary Care Provider] - Discharge Diet: Usual diet Discharge Activity: Increase activity as tolerated Patient Instructions: Opioid Safety, Pain Management Activity Restrictions/Additional Instructions: Thank you for choosing [facility] for your healthcare needs today. It is very important that you follow up as instructed or that you return to the Emergency Department should you have concerns or if your condition changes or worsens in any way. You were seen in the emergency room with complaints of elevated blood pressure and chest discomfort. Your chest x-ray. Did not show any abnormalities EKG and cardiac enzymes did not show any signs of acute coronary syndrome there is no pneumonia or pneumothorax. Your oxygen sats remain normal. Your blood pressure was noted to be mildly elevated here as well. Recommend you start Toprol-XL 25 mg once daily. manager zone will make arrangements for follow-up outpatient stress testing. Additionally we will have you add clopidogrel continue your aspirin and increase your rosuvastatin to 40 mg daily. Case management will make arrangements for you to have a follow-up MRI and follow-up with neurology. 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
[2025-02-01 11:34] LABS: Basophils # 0.1 10^3/uL (0.0-0.1); Basophils % 0.9 %; Eosinophils # 0.2 10^3/uL (0.0-0.8); Hematocrit 46.1 % (37-53); Lymphocytes # 1.6 10^3/uL (0.8-4.8); Lymphocytes % 17.8 %; Mean Corpuscular HGB Conc 34.7 g/dL (30-55); Mean Corpuscular Hemoglobin 31.4 pg (27-33); Mean Corpuscular Volume 90.4 fl (82-101); Mean Platelet Volume 9.8 fL (7.4-10.4); Monocytes # 0.5 10^3/uL (0.2-0.9); Monocytes % 5.6 %; Neutrophils # 6.37 10^3/uL (1.8-7.7); Neutrophils % 73.2 %; Nucleated Red Blood Cells % 0 %; Platelet Count 252 10^3/cmm (157-399); Red Cell Distribution Width 12.4 % (12.1-15.1)
[2025-02-01 11:46] LABS: Troponin(5th) Baseline 10 ng/L (0-15)
[2025-02-01 11:49] LABS: Alanine Aminotransferase 13 U/L (0-41); Albumin Level 4.2 g/dL (3.5-5.2); Alkaline Phosphatase 123 U/L (40-130); Anion Gap 18.8 (5-19); Aspartate Amino Transferase 14 U/L (0-40); Blood Urea Nitrogen 20 mg/dL (8-23); Calcium 9.1 mg/dL (8.5-10.5); Carbon Dioxide 22 mmol/L (22-29); Chloride 101 mmol/L (98-107); Creatinine Clr Calc Pharmacy 79.0638; Globulin 2.8 g/dL (1.3-4.6); Glomerular Filtration Rate 68.3 mL/min (90-130); Glucose 111 mg/dL (65-115); Osmolality Calculated 289 mOsm/kg (285-295); Potassium 3.8 mmol/L (3.5-5.1); Sodium 138 mmol/L (136-145); Total Bilirubin 0.4 mg/dL (0.15-1.2)
[2025-02-01 12:15] LABS: Influenza A NEGATIVE (Negative); Influenza B NEGATIVE (Negative); Respiratory Syncytial Virus Ce NEGATIVE (Negative); SARS-CoV-2 PCR NEGATIVE (Negative)
[2025-02-01 12:44] LABS: Bilirubin Urine Negative (Negative); Blood Urine Negative (Negative); Glucose Urine UA Negative (Normal); Ketones Urine Trace (Negative); Leukocyte Esterase Urine Negative (Negative); Nitrate Urine Negative (Negative); Protein Urine Trace (Negative); Urine Appearance Clear (CLEAR); Urine Color Yellow (Yellow); pH Urine 7.5 (5-7)
[2025-02-01 12:49] LABS: Add Urine Microscopic? YES; Bacteria Urine None Seen /hpf; Hyaline Casts Urine 0-4 /lpf; RBC Urine 0-2 /hpf (0-2); Squamous Epithelial Cell Urine 0-5 /hpf (0-5); WBC Urine 0-5 /hpf (0-5)
[2025-02-01 12:54] LABS: Add Urine Culture? No
--- NOTE | 2025-02-01 13:19 | ECG_ITS ---
[facility] Test Date: 2025-02-01 Pat Name: Renzo Phelps Department: Room: Gender: Male Procedure Tech: : 1965 Requested By: Mihai Pemberton Order Number: [id number] Yevgeniy MD: Ana Cedeno M.D. Measurements Intervals Friedens Rate: 66 P: 143 MO: 171 QRS: 45 QRSD: 96 T: 84 QT: 445 QTc: 467 Interpretive Statements ECTOPIC ATRIAL RHYTHM POSSIBLE LEFT ATRIAL ENLARGEMENT [-0.1mV P-WAVE IN V1/V2] incomplete right bundle branch block pattern ABNORMAL RHYTHM ECG Compared to ECG 02/01/2025 10:58:53 Ectopic atrial rhythm now present Sinus rhythm no longer present Electronically Signed On 02-01-2025 21:44:31 CDT by Ana Cedeno M.D. [email or web address]
[2025-02-01] MEDS: labetalol 5 mg/mL SDV 20mL 10 MG IVP (14:21)
--- NOTE | 2025-02-01 14:55 | CTR_ITS ---
PROCEDURE INFORMATION: Exam: CT Head Without Contrast Exam date and time: 02/01/2025 3:50 PM Age: 59 years old Clinical indication: Dizziness TECHNIQUE: Imaging protocol: Computed tomography of the head without contrast. Radiation optimization: All CT scans at this facility use at least one of these dose optimization techniques: automated exposure control; mA and/or kV adjustment per patient size (includes targeted exams where dose is matched to clinical indication); or iterative reconstruction. COMPARISON: CT sinus wo con* [id number] 05/19/2023 11:21 AM RADIATION DOSE METRICS: Total DLP (mGy-cm): 1035.39 FINDINGS: Brain: No intracranial hemorrhage. There is global parenchymal volume loss. Periventricular white matter hypoattenuation is nonspecific but most likely due to small vessel disease. No evidence of acute territorial infarct or cerebral edema. No mass effect or midline shift. Nonacute lacunar infarcts in both thalami. Focal encephalomalacia parasagittal left frontoparietal cortex. Cerebral ventricles: Prominent ventricles likely secondary to volume loss. Paranasal sinuses: Visualized sinuses are unremarkable. No fluid levels. Mastoid air cells: Visualized mastoid air cells are well aerated. Bones: Unremarkable. No acute fracture. Soft tissues: Unremarkable. CT/CT head wo con* [id number] IMPRESSION: No acute intracranial findings.
--- NOTE | 2025-02-02 10:53 | DCPLANNER ---
messaged neuro for er f/u
--- NOTE | 2025-02-02 10:53 | DCPLANNER ---
faxed outpatient mri and lexiscan orders to scheduling
== END 2025-02-01 17:39 | disposition home or self-care (01) ==
PROVIDERS: Emergency Provider Family Medicine; PCP Family Medicine
DX: R07.89 Other chest pain (principal); I10 Essential (primary) hypertension; Z11.52 Encounter for screening for COVID-19; Z79.82 Long term (current) use of aspirin; Z72.0 Tobacco use; J44.9 Chronic obstructive pulmonary disease, unspecified
CPT/HCPCS: 36415; 70450; 71045; 80053; 81001; 84484; 85025; 87637; 93005; 96374; 99285; J3490

== ENCOUNTER 2025-02-03 12:52 | Outpatient (CLI) | payer MEDICARE, SELFPAY ==
--- NOTE | 2025-02-03 12:54 | MR_ITS ---
WS: [id number] MRI HEAD WITHOUT CONTRAST TECHNIQUE: Sagittal T1, T2 axial, T2 axial FLAIR, axial and coronal T1 images, axial susceptibility weighted imaging, axial diffusion weighted images, and coronal T2 images were obtained. CLINICAL INFORMATION: DIZZINESS COMPARISON: 02/01/2025 and MRI 2013 FINDINGS: No evidence of restricted diffusion to suggest acute ischemia. Ventricular system and basal cisterns are patent. Normal posterior fossa. Normal vascular flow voids at the skull base. No extra-axial fluid collections. No evidence of mass or mass effect. Chronic lacunar infarct LEFT thalamus. Moderate small vessel changes. Mild to moderate parenchymal volume loss. Small vessel changes in the diane. Normal vascular flow voids at the skull base. No extra-axial fluid collections. No evidence of mass or mass effect. Mild mucosal thickening in the ethmoid air cells and RIGHT maxillary sinus. 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 This measures approximately 3.8 x 2.9 cm today slightly larger due to progressed global volume loss. Incidental small benign-appearing cystic lesion RIGHT thalamus is unchanged since 2013. No hemosiderin on susceptibility weighted images. Normal optic chiasm and pituitary infundibulum. MR/MR head wo con* [id number] IMPRESSION: 1. No evidence of restricted diffusion to suggest acute ischemia. 2. Moderate small vessel changes with mild to moderate parenchymal volume loss progressed since 2013. 3. Benign LEFT parasagittal parietal porencephalic cyst was present in 2013 de scribed above. 4. A few small chronic lacunar infarcts in the LEFT thalamus and LEFT basal ga nglia new from 2013 5. Mild mucosal thickening in the ethmoid air cells with mild RIGHT maxillary sinusitis. 6. No other acute findings.
== END 2025-02-03 12:53 | disposition home or self-care (01) ==
PROVIDERS: PCP Family Medicine; Visit Provider Family Medicine
DX: R07.89 Other chest pain (principal); R93.0 Abnormal findings on diagnostic imaging of skull and head, not elsewhere classified; G93.0 Cerebral cysts; J34.89 Other specified disorders of nose and nasal sinuses; J32.0 Chronic maxillary sinusitis
CPT/HCPCS: 70551

== ENCOUNTER 2025-02-15 10:36 | Outpatient (CLI) | payer MEDICARE, SELFPAY ==
--- NOTE | 2025-02-15 10:45 | USCV_ITS ---
Renzo Phelps Age: 59 Gender: M : 1965 Exam Date: 02/15/2025 10:45 Ordering Phys: Luigi Olivares MD Technologist: [employer] Exam Location: [facility] [place] Indication: TIA Risk Factors: Previous Vascular Surgery: Right Brachial BP: / Left Brachial BP: / Right Left Velocity (cm/s) Spectral Plaque Velocity (cm/s) Spectral Plaque Syst/Diast Broadening Syst/Diast Broadening 54.00/ 10.20 Prox CCA 66.00 / 14.10 53.90/ 14.00 Mid CCA 75.50 / 17.50 59.00/ 17.90 Distal CCA 57.90 / 18.70 45.70/ 11.10 Prox ICA 42.20 / 14.80 44.90/ 15.40 Mid ICA 48.10 / 18.00 53.30/ 17.00 Distal ICA 63.30 / 24.90 77.20 ECA 57.80 0.80 ICA/CCA 0.70 Antegrade Vertebral Antegrade 28.90/ 9.90 cm/s 37.00/ 13.00 cm/s Tri Subclavian Tri 59.90 48.70 FINDINGS Comparison: none available. No significant elevation of systolic or diastolic velocities. Waveforms are normal. Minimal plaque in the bifurcations. CONCLUSIONS Bilateral ICA stenosis less than 50%. Dr. Sharon Hernandez DO (Electronically Signed) Final Date: 15 February 2025 12:15 S
== END 2025-02-15 10:37 | disposition home or self-care (01) ==
PROVIDERS: PCP Family Medicine; Visit Provider Family Medicine
DX: I63.81 Other cerebral infarction due to occlusion or stenosis of small artery (principal); E51.11 Dry beriberi; I65.23 Occlusion and stenosis of bilateral carotid arteries
CPT/HCPCS: 93880

== ENCOUNTER → 2025-02-22 08:21 | Outpatient (BNVA) | payer MEDICARE, SELFPAY | PROVIDERS: PCP Family Medicine; Referring Provider Family Medicine; Visit Provider Psychiatry & Neurology Neurology | DX: I63.9 Cerebral infarction, unspecified (principal); I10 Essential (primary) hypertension; R42 Dizziness and giddiness; R55 Syncope and collapse | CPT/HCPCS: 99203 ==

== ENCOUNTER 2025-03-06 11:45 | Outpatient (CLI) | payer MEDICARE, SELFPAY | END 2025-03-06 11:46 | disposition home or self-care (01) | LOC: LAB 03-07 07:11 | PROVIDERS: PCP Family Medicine; Visit Provider Family Medicine | DX: E78.00 Pure hypercholesterolemia, unspecified (principal); I10 Essential (primary) hypertension | CPT/HCPCS: 80053; 80061; 85025 ==

== ENCOUNTER → 2025-03-16 12:52 | Outpatient (BNVA) | payer MEDICARE, SELFPAY | PROVIDERS: PCP Family Medicine; Referring Provider Psychiatry & Neurology Neurology; Visit Provider Psychiatry & Neurology Neurology | DX: R56.9 Unspecified convulsions (principal) | CPT/HCPCS: 95813 ==

== ENCOUNTER 2025-03-23 10:43 | Outpatient (CLI) | payer MEDICARE, SELFPAY ==
--- NOTE | 2025-03-23 10:45 | MR_ITS ---
WS: [id number] MRA CAROTID ARTERIES HISTORY: I63.9 - Cerebral infarction, unspecified COMPARISON: Carotid ultrasound 02/15/2025 TECHNIQUE: MRA is performed with intravenous gadolinium. MIP and source images are reviewed. Right: Common, internal and external carotid arteries are widely patent. No stenosis. Left: Common, internal and external carotid arteries are widely patent with no stenosis. Subclavian Arteries: Normal. Vertebral Arteries: Normal vertebral arteries. No stenosis or occlusion. MR/MR angio neck w con* [id number] IMPRESSION: Normal MR angiogram carotid arteries.
--- NOTE | 2025-03-23 10:45 | MR_ITS ---
WS: [id number] MRA ANGIOGRAPHY TORRES MARTINEZ OF [place] HISTORY: I63.9 - Cerebral infarction, unspecified COMPARISON: None available. TECHNIQUE: 3-D MR angiography is performed of the burns [place] of [place]. All images are reviewed including source images. Distal vertebral and basilar arteries are intact with no significant stenosis or plaque. Posterior cerebral arteries are normal course and caliber. Posterior communicating arteries are both patent. Intracranial portion of the internal carotid arteries are normal course and caliber. No significant atherosclerosis, stenosis or aneurysm identified. Middle and anterior cerebral arteries are both patent with no significant disease. Anterior communicating artery is also normal. LEFT parasagittal area of encephalomalacia from a prior LEFT parietal infarct. Ex vacuo dilatation of the occipital horn LEFT lateral ventricle. MR/MR angio head wo con [id number] IMPRESSION: Normal MRA burns [place] of [place].
[2025-03-23] MEDS: gadobenate dimeglumine 20 mL vial 18 ML IV (12:03)
== END 2025-03-23 10:44 | disposition home or self-care (01) ==
LOC: RAD 10:44
PROVIDERS: PCP Family Medicine; Visit Provider Psychiatry & Neurology Neurology
DX: I63.9 Cerebral infarction, unspecified (principal); R93.0 Abnormal findings on diagnostic imaging of skull and head, not elsewhere classified; G91.8 Other hydrocephalus
CPT/HCPCS: 70544; 70548; 80053; 80061; 85025

== ENCOUNTER 2025-05-23 14:58 | Outpatient (CLI) | payer MEDICARE, SELFPAY | END 2025-05-23 14:59 | LOC: RAD 06-13 14:58 | PROVIDERS: PCP Family Medicine; Visit Provider Psychiatry & Neurology Neurology | DX: R42 Dizziness and giddiness (principal); I10 Essential (primary) hypertension; J32.9 Chronic sinusitis, unspecified; Z79.02 Long term (current) use of antithrombotics/antiplatelets; Z79.82 Long term (current) use of aspirin; F17.200 Nicotine dependence, unspecified, uncomplicated; Z86.73 Personal history of transient ischemic attack (TIA), and cerebral infarction without residual deficits; R55 Syncope and collapse; R00.2 Palpitations; R06.02 Shortness of breath | CPT/HCPCS: 99204 ==

== ENCOUNTER 2025-06-22 06:30 | Outpatient (CLI) | payer MEDICARE, SELFPAY ==
--- NOTE | 2025-06-22 06:30 | USCV_ITS ---
Renzo Phelps Age: 59 Gender: M : 1965 Exam Date: 06/22/2025 06:45 Ordering Phys: Lori Marie MD ([email or web address]) Technologist: Exam Location: [facility] [place] Indication: w/wo bubbles BP: 135 / 80 HR: Rhythm: Sinus Technical Quality: Adequate MEASUREMENTS (Male / Female) Normal Values 2D ECHO LV Diastolic Diameter PLAX 5.5 cm 4.2 - 5.9 / 3.9 - 5.3 cm IVS Diastolic Thickness 1.3 cm 0.6 - 1.0 / 0.6 - 0.9 cm IVS Systolic Thickness 1.8 cm LVPW Diastolic Thickness 1.4 cm 0.6 - 1.0 / 0.6 - 0.9 cm LVPW Systolic Thickness 1.9 cm LVOT Diameter 2.0 cm LV Ejection Fraction 2D Teich 54.0 % LV Ejection Fraction MOD 4C 54.7 % LV Ejection Fraction MOD 2C 63.6 % LV Ejection Fraction 2C AL 65.6 % LA Diameter 3.3 cm RA Systolic Volume 4C AL 52.7 ml RA Systolic Volume 4C MOD 49.8 ml LA Sys Volume AL 50.9 cm cubed LA Sys Volume Index AL 24.0 cm cubed/m squared Aorta at Sinotubular Diameter 3.1 cm IVC Diameter 2.0 cm FINDINGS Left Ventricle Normal left ventricular size, systolic function and wall thickness, with no regional wall motion abnormalities. Left ventricular ejection fraction is estimated at 60 %. Right Ventricle Right Atrium Left Atrium Mitral Valve Aortic Valve Tricuspid Valve Pulmonic Valve Pericardium Aorta IVC CONCLUSIONS Normal left ventricular size, systolic function and wall thickness, with no regional wall motion abnormalities. Left ventricular ejection fraction is estimated at 60 %. There is no pericardial effusion. Not sure Bubble study was performed Lori Marie MD (Electronically Signed) Final Date: 22 June 2025 16:09 S
== END 2025-06-22 06:31 | disposition home or self-care (01) ==
LOC: RAD 06:31
PROVIDERS: PCP Family Medicine; Visit Provider Internal Medicine Cardiovascular Disease
DX: R00.2 Palpitations (principal); R06.02 Shortness of breath
CPT/HCPCS: C8924